=== PATIENT | female | born 1980 | race Caucasian/White ===

== ENCOUNTER → 2016-10-07 | Outpatient (REF) | payer OTHER ==
[~2016-10-07] MED LIST: MACRODANTIN; MILKSUS; PHENTERAMINE; VICO; [UNRECOGNIZED DRUG - OTHER]; [UNRECOGNIZED DRUG - OTHER] PO
== END ==
LOC: M LAB REF 17:08
PROVIDERS: ATTEND Nurse Practitioner Family
DX: N76.0 Acute vaginitis (principal)

== ENCOUNTER → 2017-06-09 | Outpatient (REF) | payer OTHER | LOC: M LAB REF 16:09 | PROVIDERS: ATTEND Nurse Practitioner Family | DX: R35.0 Frequency of micturition (principal); R53.83 Other fatigue ==

== ENCOUNTER → 2017-08-04 | Outpatient (REF) | payer OTHER ==
[2017-08-05 14:43] LABS: VITAMIN B12 LEVEL 465 PG/ML (247-911)
[2017-08-06 09:06] LABS: FERRITIN 5 NG/ML (8-252); PERCENT SATURATION 7.6 % (13.2-45.0); TOTAL IRON BINDING CAPACITY 513 UG/DL (250-450)
[2017-08-06 14:03] LABS: FOLATE 21.7 NG/ML (>5.4)
== END ==
LOC: M LAB REF 14:02
PROVIDERS: ATTEND Internal Medicine
DX: R21 Rash and other nonspecific skin eruption (principal); R53.83 Other fatigue; Z98.84 Bariatric surgery status

== ENCOUNTER → 2017-08-21 | Outpatient (REF) | payer OTHER | LOC: M LAB REF 16:16 | PROVIDERS: ATTEND Physician Assistant | DX: J02.9 Acute pharyngitis, unspecified (principal) ==

== ENCOUNTER → 2018-06-26 | Outpatient (REF) | payer OTHER | LOC: M WUC 13:40 | DX: J02.9 Acute pharyngitis, unspecified (principal) ==

== ENCOUNTER 2019-12-10 10:34 | Emergency (ER) | payer OTHER ==
[~2019-12-10] VITALS: Ht 152.4 cm; Wt 90.9 kg
[2019-12-10] MEDS ORDERED: VENL75CA47 (10:51)
[2019-12-10] MEDS ORDERED: OMEP1CAP73 (10:51)
[2019-12-10] MEDS ORDERED: BUSP15TA47 (10:51)
[2019-12-10] MEDS ORDERED: CAMRTAB2 (10:51)
[2019-12-10] MEDS ORDERED: BUPR150T3 (10:51)
[2019-12-10] MEDS ORDERED: NS 1,000 ML IV ONE (12:30)
[2019-12-10 12:52] LABS: BASO % 0.3 % (0.0-1.0); EOS # 0.1 10^3/uL (0.0-0.5); EOS % 0.6 % (0.0-3.0); HEMATOCRIT 37.9 % (36.0-47.0); HEMOGLOBIN 11.7 g/dl (12.0-15.5); LYMPH # 1.4 10^3/uL (1.5-5.0); LYMPH % 16.1 % (24.0-44.0); MEAN CORPUSCULAR HEMOGLOBIN 25.2 pg (27.0-33.0); MEAN CORPUSCULAR HGB CONC 30.9 g/dl (32.0-36.5); MEAN CORPUSCULAR VOLUME 81.7 fl (80.0-96.0); MONO # 0.5 10^3/uL (0.0-0.8); MONO % 5.4 % (0.0-5.0); NEUTROPHILS # 6.9 10^3/uL (1.5-8.5); NEUTROPHILS % 77.4 % (36.0-66.0); PLATELET COUNT, AUTOMATED 294 10^3/uL (150-450); RED BLOOD COUNT 4.64 10^6/uL (4.00-5.40); WHITE BLOOD COUNT 8.9 10^3/uL (4.0-10.0)
[2019-12-10] MEDS ORDERED: MECLIZINE 25 MG TABLET PO ONE (13:15)
[2019-12-10 13:35] LABS: ALBUMIN 3.3 GM/DL (3.2-5.2); ALT/SGPT 28 U/L (12-78); BILIRUBIN,TOTAL 0.3 MG/DL (0.2-1.0); BLOOD UREA NITROGEN 10 MG/DL (7-18); CALCIUM LEVEL 9.1 MG/DL (8.5-10.1); CARBON DIOXIDE LEVEL 26 MEQ/L (21-32); CHLORIDE LEVEL 105 MEQ/L (98-107); CREATININE FOR GFR 0.85 MG/DL (0.55-1.30); GLOMERULAR FILTRATION RATE > 60.0 (>60); GLUCOSE, FASTING 88 MG/DL (70-100); POTASSIUM SERUM 4.1 MEQ/L (3.5-5.1); SODIUM LEVEL 137 MEQ/L (136-145); TOTAL PROTEIN 7.3 GM/DL (6.4-8.2)
--- NOTE | 2019-12-10 14:22 | REP ---
CT BRAIN WITHOUT CONTRAST: CT brain performed without IV contrast. Coronal reconstruction images are performed. The ventricles are normal in size and position with no midline shift or mass effect. Gates-white differentiation is well maintained. No acute intracranial hemorrhage is seen. There is no extra-axial fluid collection. Bone window examination is unremarkable. Visualized paranasal sinuses are clear. IMPRESSION: Negative noncontrast CT brain. Electronically Signed by Carl Gates MD 12/10/2019 02:58 P
[2019-12-10] MEDS ORDERED: MECL1TAB31 PO (16:27)
[2019-12-10] MEDS ORDERED: [UNRECOGNIZED DRUG - OTHER] (16:27)
[2019-12-10] MEDS ORDERED: CETI10CA2 PO (16:27)
[2019-12-10] MEDS ORDERED: FLON27.5 NARES (16:27)
[2019-12-10 16:30] VITALS: BP 134/84
--- NOTE | 2019-12-11 19:22 | ECGEPIP ---
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
== END 2019-12-10 17:00 | disposition home or self-care (01) ==
LOC: M ED 10:34
DX: R42 Dizziness and giddiness (principal); K21.9 Gastro-esophageal reflux disease without esophagitis; F33.9 Major depressive disorder, recurrent, unspecified; F41.9 Anxiety disorder, unspecified; Z98.84 Bariatric surgery status; Z79.899 Other long term (current) drug therapy

== ENCOUNTER 2019-12-16 09:30 | Outpatient (RCR) | payer OTHER ==
[~2019-12-16 09:30] MED LIST changes: +BUPR150T3; +BUSP15TA47; +CAMRTAB2; +CETI10CA2 PO; +FLON27.5 NARES; +MECL1TAB31 PO; +OMEP1CAP73; +VENL75CA47; +[UNRECOGNIZED DRUG - OTHER]
== END 2019-12-30 ==
LOC: M PT 09:30
PROVIDERS: ATTEND Internal Medicine
DX: R42 Dizziness and giddiness (principal)

== ENCOUNTER → 2020-01-27 | Outpatient (CLI) | payer OTHER ==
--- NOTE | 2020-01-27 18:22 | REP ---
Clinical: Trauma. Technique: AP, lateral, bilateral oblique views left foot . Findings: There is a displaced fracture fragments from the base of the fifth metatarsal bone. Remainder examination appears normal. Impression: Acute displaced fracture fragment at the base of the fifth metatarsal bone. Electronically Signed by Benja Salgado MD 01/27/2020 06:14 P
== END ==
LOC: M WUC 14:47
PROVIDERS: ATTEND Physician Assistant
DX: S92.352A Displaced fracture of fifth metatarsal bone, left foot, initial encounter for closed fracture (principal); X58.XXXA Exposure to other specified factors, initial encounter; Y92.9 Unspecified place or not applicable

== ENCOUNTER → 2020-02-05 | Outpatient (CLI) | payer OTHER ==
[~2020-02-05] MED LIST changes: -VENL75CA47; +VENL75CA47 PO
== END ==
LOC: M LABSMTC 10:20
PROVIDERS: ATTEND Anesthesiology
DX: Z01.818 Encounter for other preprocedural examination (principal); Z11.59 Encounter for screening for other viral diseases
CPT/HCPCS: 87486; 87581; 87633; 87798; C9803

== ENCOUNTER 2020-02-07 07:35 | Day surgery (SDC) | payer OTHER ==
[~2020-02-07] VITALS: Ht 152.4 cm; Wt 92.0 kg
[2020-02-07] MEDS ORDERED: fentaNYL 250 MCG/5 ML INJECTION (J3010) As Ordered ONE (07:44)
[2020-02-07] MEDS ORDERED: MIDAZOLAM INJ 2MG/2ML VIAL (J2250 PER 1MG) As Ordered ONE (07:44)
[2020-02-07] MEDS ORDERED: ONDANSETRON 4MG/2ML VIAL As Ordered ONE (07:46)
[2020-02-07] MEDS ORDERED: dexameTHASONE 4 MG/ML 1ML VIAL (J1100 PER 1MG) As Ordered ONE (07:46)
[2020-02-07] MEDS ORDERED: SUGAMMADEX SODIUM 500 MG/5 ML VIAL (BRIDION) As Ordered ONE (07:46)
[2020-02-07] MEDS ORDERED: propofoL 200 MG/20 ML VIAL As Ordered ONE (07:47)
[2020-02-07] MEDS ORDERED: LIDOCAINE 2% 100MG/5ML SDV (FOR ANES.) As Ordered ONE (07:47)
[2020-02-07] MEDS ORDERED: ROCURONIUM BROMIDE 50 MG/5 ML VIAL As Ordered ONE (07:47)
[2020-02-07] MEDS ORDERED: ceFAZolin SOD 2 GM in IV 1 EA IV ONE (08:00)
[2020-02-07] MEDS ORDERED: ePHEDrine SULFATE 25 MG/5 ML(5MG/ML) SYRINGE As Ordered ONE (09:15)
[2020-02-07] MEDS ORDERED: PHENYLephrine HCL 500 MCG/5 ML (100MCG/ML) SYRINGE (J2370) As Ordered ONE (09:15)
[2020-02-07] MEDS ORDERED: ACETAMINOPHEN 1000MG 100ML IV BTL (OFIRMEV) (J0131 PER 10MG) As Ordered ONE (10:10)
[2020-02-07] MEDS ORDERED: BUPIVACAINE HCL 0.5% 30 ML VIAL As Ordered ONE (10:25)
[2020-02-07] MEDS ORDERED: PERCOCET 5MG/325MG TAB As Ordered ONE (10:58)
[2020-02-07] MEDS ORDERED: fentaNYL 100 MCG/2 ML INJECTION (J3010) IV PRN (11:00)
[2020-02-07] MEDS: PERCOCET 5MG/325MG TAB PO PRN ×2 (11:00→11:37)
[2020-02-07] MEDS ORDERED: LR 1,000 ML IV SCH ×2 (11:00)
[2020-02-07] MEDS ORDERED: METOCLOPRAMIDE INJ 10MG/2ML VIAL (J2765 PER 1) IV PRN (11:00)
[2020-02-07] MEDS ORDERED: ONDANSETRON 4MG/2ML VIAL IV PRN (11:00)
[2020-02-07 12:30] VITALS: BP 114/69
--- NOTE | 2020-02-07 14:24 | REP ---
C-ARM VIEWS, LEFT FOOT: Multiple C-arm views left foot performed. A screw is placed at the base of the 5th metatarsal. The osseous structures are well aligned. 45 seconds fluoroscopy time utilized. Electronically Signed by Carl Gates MD 02/07/2020 11:01 P
--- NOTE | 2020-02-10 16:32 | RO ---
DATE OF PROCEDURE: 02/07/2020 PREPROCEDURE DIAGNOSIS: Left displaced 5th metatarsal fracture. POSTPROCEDURE DIAGNOSIS: Left displaced and comminuted 5th metatarsal fracture with injury to the peroneus brevis insertion. PROCEDURE: Left 5th metatarsal open reduction internal fixation and repair of peroneus brevis insertion. Also use of the mini C-arm. SURGEON: Lilian Dinh MD ALIGNER TYPEWRITER: None. ANESTHESIA: General endotracheal anesthesia. ESTIMATED BLOOD LOSS: 10 mL. COMPLICATIONS: None. CONDITION: Stable to recovery. SPECIMENS: Cartilage fragments from base of the 5th metatarsal. INDICATIONS: Neisha García is a 40-year-old female, status post injury to her left 5th metatarsal. There is significant displacement of the fragment, and she opted for operative intervention. Risks and benefits of surgery were discussed with the patient in detail and include, but are not limited to, infection, damage to nerves and blood vessels, continued pain and stiffness, need for additional procedures. Informed consent was obtained in the office. DESCRIPTION OF PROCEDURE: The patient was met in the preoperative holding area where her left lower extremity was marked as the corrective operative side. She was then taken to the operating room where she was placed in the supine position on the operating room table. Bony prominences were all padded. A well-padded tourniquet was placed on the left upper thigh. The left lower extremity was prepped and draped in the normal sterile fashion. Antibiotics were given within 60 minutes prior to incision. An official time-out was held where the correct patient, operative side and operative procedure were verified. Incision was made over the dorsolateral aspect of the 5th metatarsal. The sural nerve was identified and protected. Peroneus brevis insertion had found to be torn in addition which the fracture which was significantly comminuted at the articular surface and rotated laterally. Fracture was cleaned of debris. Multiple small cartilage fragments were removed. It was large enough and did contain enough of the insertion that I did decide to repair it. Adequate reduction was gained, and this was held in place with a 1.25 mm K-wire. Again, there were some small areas of missing cartilage due to the comminuted cartilage fragments. Following this, I was able to place a 2.0 cannulated lag screw across the fracture site. There was good compression and bite. Radiographs were performed with the mini C-arm in AP, oblique and lateral view and found to be satisfactory. Following this, copious irrigation was performed. I then was able to repair the peroneus brevis insertion where it had been damaged with #0 Vicryl. Again, irrigation was performed, soft tissues were closed with #3-0 Vicryl, and the skin was closed with #3-0 nylon. A sterile dressing was applied followed by a well-padded splint. The patient was then extubated and brought to the recovery room in stable condition. PLAN: The patient will be nonweightbearing in the left lower extremity. She will be on aspirin for deep vein thrombosis (DVT) prophylaxis.
== END 2020-02-07 13:11 | disposition home or self-care (01) ==
LOC: M SDC 07:35
PROVIDERS: ATTEND Orthopaedic Surgery
DX: S92.352A Displaced fracture of fifth metatarsal bone, left foot, initial encounter for closed fracture (principal); X58.XXXA Exposure to other specified factors, initial encounter; Y92.89 Other specified places as the place of occurrence of the external cause; Y93.9 Activity, unspecified; Y99.9 Unspecified external cause status; G47.30 Sleep apnea, unspecified; K21.9 Gastro-esophageal reflux disease without esophagitis; Z79.899 Other long term (current) drug therapy; Z91.040 Latex allergy status
CPT/HCPCS: 28200; 28485; 76000; 81025; 88300; C1713; J0131; J0690; J1100; J2250; J2370; J2405; J3010

== ENCOUNTER → 2020-07-25 | Outpatient (REF) | payer OTHER ==
[2020-07-25 12:31] LABS: FOLATE 13.4 NG/ML
== END ==
LOC: M LAB REF 11:13
PROVIDERS: ATTEND Internal Medicine
DX: Z98.84 Bariatric surgery status (principal)

== ENCOUNTER → 2021-01-24 | Outpatient (REF) | payer OTHER ==
[~2021-01-24] MED LIST changes: +BUPR150T12; -BUPR150T3
== END ==
LOC: M LAB REF 12:06
PROVIDERS: ATTEND Internal Medicine
DX: D50.9 Iron deficiency anemia, unspecified (principal)

== ENCOUNTER → 2021-08-02 | Outpatient (REF) | payer OTHER ==
[2021-08-02 14:24] LABS: PERCENT SATURATION 11.2 % (13.2-45.0)
[2021-08-02 14:36] LABS: FOLATE 11.3 NG/ML
== END ==
LOC: M LAB REF 12:48
PROVIDERS: ATTEND Internal Medicine
DX: Z98.84 Bariatric surgery status (principal)

== ENCOUNTER → 2022-02-18 | Outpatient (REF) | payer OTHER ==
[2022-02-19 17:13] LABS: FERRITIN 7 NG/ML (8-252)
[2022-02-19 17:45] LABS: VITAMIN B12 LEVEL 223 PG/ML (247-911)
== END ==
LOC: M LAB REF 16:34
PROVIDERS: ATTEND Internal Medicine
DX: D50.9 Iron deficiency anemia, unspecified (principal); Z98.84 Bariatric surgery status

== ENCOUNTER → 2022-06-26 | Outpatient (REF) | payer OTHER ==
[2022-06-26 18:51] LABS: FERRITIN 6 NG/ML (8-252); VITAMIN B12 LEVEL 269 PG/ML (247-911)
== END ==
LOC: M LAB REF 12:05
PROVIDERS: ATTEND Internal Medicine
DX: D50.9 Iron deficiency anemia, unspecified (principal); D51.9 Vitamin B12 deficiency anemia, unspecified

== ENCOUNTER → 2022-08-21 | Outpatient (REF) | payer OTHER | LOC: M LAB REF 11:59 | PROVIDERS: ATTEND Internal Medicine | DX: D50.9 Iron deficiency anemia, unspecified (principal); D51.9 Vitamin B12 deficiency anemia, unspecified ==

== ENCOUNTER → 2022-10-17 | Outpatient (CLI) | payer OTHER | LOC: M WUC 09:14 | PROVIDERS: ATTEND Student in an Organized Health Care Education/Training Program | DX: M25.561 Pain in right knee (principal) ==

== ENCOUNTER → 2022-10-31 | Outpatient (REF) | payer OTHER ==
[2022-10-31 17:55] LABS: FERRITIN 7.7 NG/ML (7.3-270.7)
== END ==
LOC: M LAB REF 16:19
PROVIDERS: ATTEND Internal Medicine
DX: D50.9 Iron deficiency anemia, unspecified (principal)

== ENCOUNTER → 2023-02-12 | Outpatient (REF) | payer OTHER | LOC: M LAB REF 11:24 | PROVIDERS: ATTEND Internal Medicine | DX: D50.9 Iron deficiency anemia, unspecified (principal) ==

== ENCOUNTER → 2023-04-24 | Outpatient (REF) | payer OTHER ==
[2023-04-24 14:50] LABS: FERRITIN 20.1 NG/ML (7.3-270.7)
[2023-04-24 14:51] LABS: FOLATE > 24.0 NG/ML (>5.4)
[2023-04-24 14:52] LABS: VITAMIN B12 LEVEL 873 PG/ML (211-911)
== END ==
LOC: M LAB REF 12:49
PROVIDERS: ATTEND Internal Medicine
DX: D50.9 Iron deficiency anemia, unspecified (principal)

== ENCOUNTER → 2023-07-30 | Outpatient (REF) | payer OTHER ==
[~2023-07-30] MED LIST changes: +MECL-209 PO; -MECL1TAB31 PO
[2023-07-30 17:08] LABS: FERRITIN 1.4 NG/ML (7.3-270.7); FOLATE > 24.0 NG/ML (>5.4); VITAMIN B12 LEVEL 493 PG/ML (211-911)
== END ==
LOC: M LAB REF 16:21
PROVIDERS: ATTEND Internal Medicine
DX: Z98.84 Bariatric surgery status (principal); D51.9 Vitamin B12 deficiency anemia, unspecified; D50.9 Iron deficiency anemia, unspecified

== ENCOUNTER → 2023-11-03 | Outpatient (REF) | payer OTHER ==
[2023-11-05 14:52] LABS: VITAMIN B12 LEVEL 439 PG/ML (211-911)
[2023-11-05 14:53] LABS: FOLATE > 24.0 NG/ML (>5.4)
== END ==
LOC: M LAB REF 12:01
PROVIDERS: ATTEND Internal Medicine
DX: D50.9 Iron deficiency anemia, unspecified (principal); Z98.84 Bariatric surgery status

== ENCOUNTER → 2024-02-10 | Outpatient (REF) | payer OTHER | LOC: M LAB REF 14:58 | PROVIDERS: ATTEND Internal Medicine | DX: D50.9 Iron deficiency anemia, unspecified (principal) ==

== ENCOUNTER → 2024-05-18 | Outpatient (REF) | payer OTHER | LOC: M LAB REF 13:09 | PROVIDERS: ATTEND Internal Medicine | DX: D50.9 Iron deficiency anemia, unspecified (principal) ==

== ENCOUNTER → 2025-03-11 | Outpatient (REF) | payer OTHER ==
[2025-03-11 14:08] LABS: VITAMIN B12 LEVEL 484 PG/ML (211-911)
== END ==
LOC: M LAB REF 11:50
PROVIDERS: ATTEND Internal Medicine
DX: D51.9 Vitamin B12 deficiency anemia, unspecified (principal)

== ENCOUNTER → 2025-06-16 | Outpatient (REF) | payer OTHER | LOC: M LAB REF 12:28 | PROVIDERS: ATTEND Internal Medicine | DX: D50.9 Iron deficiency anemia, unspecified (principal) ==